=== PATIENT | female | born 1995 | race Caucasian/White ===

== ENCOUNTER 2017-12-18 18:07 | Emergency (ER) | payer OTHER ==
[~2017-12-18] VITALS: Ht 170.2 cm; Wt 135.4 kg
[2017-12-18 19:08] VITALS: BP 136/85; PULSE 92; TEMP 36.9; O2SAT 100; Ht 170.2 cm; Wt 135.4 kg
--- NOTE | 2017-12-18 20:32 | DIAGNOSTIC IMAGING REPORT ---
CT HEAD WITHOUT CONTRAST (CT) CLINICAL HISTORY: Head trauma. Headache, dizziness, nausea. COMPARISON STUDY: No previous studies for comparison. TECHNIQUE: Axial CT of the brain is performed from the vertex to the skull base. IV contrast was not administered for this examination. A dose lowering technique was utilized adhering to the principles of ALARA. CT DOSE: 537.48 mGy.cm FINDINGS: No intra or extra-axial mass lesions are visualized. There is no CT evidence of acute cortical infarction. There is no evidence of midline shift. There is no acute hemorrhage. No calvarial fractures are visualized. There is no evidence of pathologic ventricular dilatation. There is no evidence of acute sinusitis IMPRESSION: Normal noncontrast head CT. Electronically signed by: Tate Marcelo M.D. 12/18/2017 8:31 PM Dictated Date/Time: 12/18/2017 8:30 PM
--- NOTE | 2017-12-20 00:54 | EMERGENCY ROOM VISIT NOTE ---
ED Visit Note First contact with patient: 19:10 Chief Complaint: Head injury. History of Present Illness: is a 22-year-old white female who ambulates into the ED complaining of a possible head injury. Patient reports 5 days ago she reports that while sliding out of the top bunk of a bunk bed she struck her head on a window ledge. She reports at the time of the injury she did not have a loss of consciousness. She reports since the injury she has been having headaches. She reports she struck her head in the mid frontal area at the time of the injury and her pain in her head has been biparietal. She describes her pain as a pressure with occasional throbbing. She rates her discomfort 7/10. Her pain is nonradiating. She is not identified any aggravating or alleviating factors related to the pain. She was using ibuprofen and Tylenol without relief of her discomfort but today she was seen at an urgent care center and was given Excedrin and has had mild relief of her discomfort. Associated with her pain she reports she is having a mild dizziness sensation which is worsened with head movement and light sensitivity. She denies visual changes, hearing changes, difficulty speaking, difficulty swallowing, difficulty walking/coordinating body movements, neck pain, chest pain, shortness of breath, abdominal pain, nausea/vomiting, extremity weakness/ numbness/tingling. Review of Systems: As noted above in history of present illness. All body systems were reviewed and found to be negative as noted above. Past Medical History: Status post anterior cruciate ligament repair. Current Medications: control. Allergies to Medications: Lidocaine. Social History: Patient is currently University student; she feels safe in her home environment; she denies tobacco use and admits to alcohol use. Physical Examination: Vital Signs: Date Time Temp Pulse Resp B/P (MAP) Pulse Ox O2 Delivery O2 Flow Rate FiO2 12/18/17 19:08 36.9 92 20 136/85 100 Room Air GENERAL: 22-year-old female in mild to moderate distress due to symptoms, nontoxic-appearing, afebrile and hemodynamically stable. Patient is found lying on the ED litter in a darkened room. NEUROLOGICAL: Awake, alert and oriented to person, place and time. Answering questions appropriately and following commands. Pleasant and cooperative with my examination. Romberg test is negative but unsteady. Pronator drift test negative. Cranial nerves II through XII grossly intact. Normal rapid on a movements of the hands. Normal heel lyon test. Able to spell backwards and has difficulty counting backwards. Good hand eye coordination. No focal motor sensory deficits. SKIN: Warm, dry and pink. No soft tissue trauma noted. HEENT: Atraumatic and normocephalic. Skull: No bony deformity, bony crepitus, swelling or ecchymosis. No raccoon's eyes or pizarro signs. No drainage from the ears of the nostril; no hemotympanum. Face: No bony deformity, bony crepitus, swelling or ecchymosis. PERRLA. EOMI without nystagmus. Mild light sensitivity. Deferred funduscopic examination due to light sensitivity. Sclera white and conjunctiva pink. No malocclusion. No intraoral trauma. Airway patent. Speech is normal and clear. Trachea midline. No jugular venous distention. BACK: No tenderness over the bony cervical and thoracic spine. Full range of motion of the cervical spine. EXTREMITIES: Moves all extremities well on command and with purpose. All distal neurovascular statuses are intact and equal bilaterally. 4/5 muscle strength in all movements of the shoulders, elbows, forearms, wrists, hands, hips, knees, ankles and feet. ED Course: Patient is assessed as noted above. Patient's medication list was reviewed. Patient was offered additional pain medications and refused. After lengthy conversation with the patient and her discussing the issues with her family it was felt that a CT scan was indicated. Head CT: Was reviewed by myself and read by the radiologist showing no acute intracranial abnormalities or skull fractures. Patient was educated about today's findings and instructed on her treatment plan ; she verbalized understanding and agreement with this plan. Clinical Impression: Concussion. Disposition: Patient discharged home in stable condition accompanied by a male friend; prior to departure she was reassessed and subjectively reported she was feeling better. Plan: Patient was encouraged to follow-up with the [facility]. Patient was encouraged to continue her current medications. Patient was encouraged to stay well-hydrated. Patient was encouraged to avoid alcohol use. Patient was encouraged to follow-up with [facility] for recheck and possible assistants with her classes. Patient and boyfriend were educated on worsening signs of head injury. Patient was encouraged return ED for worsening signs of head injury or any new/ concerning symptoms.
== END 2017-12-18 21:43 | disposition home or self-care (01) ==
LOC: C.EDB 18:08 → C.EDD 21:43
DX: S06.0X0A Concussion without loss of consciousness, initial encounter (principal); W22.8XXA Striking against or struck by other objects, initial encounter; Z79.3 Long term (current) use of hormonal contraceptives